=== PATIENT | male | born 1950 | race Caucasian/White ===

== ENCOUNTER 2016-10-19 12:27 | Emergency (ER) | payer OTHER ==
[~2016-10-19] VITALS: Ht 180.3 cm; Wt 100.0 kg
[~2016-10-19 12:27] MED LIST: CAL-500T PO; CEPH-460 PO; CHOL1TAB29 PO; CLAR10CA3 PO; DOXY100C PO; ENBR50IN2 SQ; LISI-519 PO; MEDR4TAB PO; METH0.4I3 SQ; NYST10007 TOPICAL; PANT40TA3 PO; POTA99TA PO; PROB1TAB PO; REST15CA PO; TRAM50TA PO; VITA100T2 PO; VITACAP7 PO; [UNRECOGNIZED DRUG - CODE] PO
[2016-10-19 12:29] VITALS: BP 127/94; PULSE 101; RESP 15; TEMP 98.2; O2SAT 97
--- NOTE | 2016-10-19 12:37 | PD ---
HPI . right 4th toe laceration Chief Complaint: Laceration/Skin Injury Time Seen by Provider: 12:37 Travel History International Travel<30 days: No Contact w/Intl Traveler<30days: No Traveled to known affect area: No History of Present Illness HPI 66-year-old male with past medical history of rheumatoid arthritis, neuropathy and osteoarthritis here with complaints of right fourth toe laceration. Patient was trying to remove his shoe last night and cut the right fourth toe. He actually had no recollection of the event, but his significant other noticed the bleeding. They immediately cleaned off the toe with Betadine and saline. She applied a clean dressing. Today he is here seeking repair of this toe. He does have an appointment with his new primary care provider on Friday. He denies any pain or discomfort in the area. He is up-to-date on his tetanus and received in 2013. He is requesting repair of this laceration without the use of lidocaine due to his significant neuropathy. He tells me he has had lacerations repair in the past without any anesthesia. PFSH Past Medical History Hx Anticoagulant Therapy: Yes Arthritis: Yes Asthma: No Autoimmune Disease: Yes (RA) Blood Disorders: No Anxiety: No Depression: No Heart Rhythm Problems: No Cancer: No Cardiovascular Problems: Yes High Cholesterol: Yes Chemotherapy: No Chest Pain: No Congestive Heart Failure: No COPD: No Diabetes: No Diminished Hearing: No Endocrine: No Gastrointestinal Disorders: Yes GERD: No Genitourinary: No Hiatal Hernia: No Hypertension: Yes Immune Disorder: No Implanted Vascular Access Dvce: Yes Kidney Stones: No Musculoskeletal: Yes (OA) Neurologic: No Psychiatric: No Reproductive: No Respiratory: Yes Radiation Therapy: No Renal Failure: No Sickle Cell Disease: No Sleep Apnea: Yes Thyroid Disease: No Ulcer: Yes (esopogeal varices) Past Surgical History Abdominal Surgery: No AICD: No Arteriovenous Shunt: No Body Medical Devices: LEFT HIP IMPLANT Cardiac Surgery: No Ear Surgery: No Endocrine Surgery: No Eye Surgery: No Genitourinary Surgery: No Gynecologic Surgery: No Insulin Pump: No Joint Replacement: Yes (right hip replacement) Oral Surgery: No Pacemaker: No Thoracic Surgery: No Other Surgery: Yes Social History Alcohol Use: Yes (6 BEERS DAILY) Tobacco Use: No Substance Use: No Allergies-Medications (Allergen,Severity, Reaction): Coded Allergies: No Known Allergies (Verified , 07/07/16) Reported Meds & Prescriptions Reported Meds & Active Scripts Active Nystop Topical (Nystatin Topical) 100,000 Unit/Gm Powd 1 Applic TOPICAL Q12HR Restoril (Temazepam) 15 Mg Cap 15 Mg PO HS PRN Vitamin B-1 (Thiamine HCl) 100 Mg Tab 100 Mg PO DAILY Reported Hydrochlorothiazide 12.5 Mg Cap 12.5 Mg PO DAILY Claritin (Loratadine) 10 Mg Cap 10 Mg PO DAILY Probiotic (Probiotic Product) 1 Tab Tab 1 Tab PO DAILY B Complex (B-Complex Vitamins) 1 Cap 1 Cap PO DAILY D3 2000 (Cholecalciferol) 2,000 Unit Tab 2,000 Units PO DAILY Enbrel PF Inj (Etanercept) 50 mg/ml Syr 50 Mg SQ Q7D GIVE ON FRIDAYS Otrexup Inj (Methotrexate Inj) 25 Mg/0.4 Ml Inj 25 Mg SQ WEEKLY GIVE ON FRIDAYS Tramadol (Tramadol HCl) 50 Mg Tab 100 Mg PO TID PRN Medrol (Methylprednisolone) 4 Mg Tab 6 Mg PO BID Pantoprazole (Pantoprazole Sodium) 40 Mg Tab 40 Mg PO DAILY Potassium 99 Mg Tab 99 Mg PO DAILY Lisinopril 5 Mg Tab 5 Mg PO DAILY Gentle Iron 28-60-0.008-0.4 mg (Iron-Vit C-N36-Jqwqw Acid) 28-60-0.008-0.4 mg Tab 1 Tab PO HS Freddie-Mag (Calcium-Magnesium) 500-250 Mg Tab 1 Tab PO DAILY Review of Systems General / Constitutional: No: Fever Eyes: No: Visual changes HENT: No: Headaches Cardiovascular: No: Chest Pain or Discomfort Respiratory: No: Shortness of Breath Gastrointestinal: No: Abdominal Pain Genitourinary: No: Dysuria Musculoskeletal: No: Pain Skin: Positive Other (right 4th toe laceration), No Rash Neurologic: No: Weakness Psychiatric: No: Depression Endocrine: No: Polydipsia Hematologic/Lymphatic: No: Easy Bruising Physical Exam Narrative GENERAL: AAO x 3, no acute distress, Well-nourished, well-developed patient. SKIN: Warm and dry. No visible rashes or bruising. HEAD: Normocephalic and atraumatic. EYES: No scleral icterus. No injection or drainage. ENT: No nasal drainage noted. Mucous membranes pink. Airway patent. NECK: Supple, trachea midline. No JVD. CARDIOVASCULAR: Regular rate and rhythm without murmurs, gallops, or rubs. RESPIRATORY: Breath sounds equal bilaterally. No accessory muscle use. No rhonchi or rales. GASTROINTESTINAL: no abn on visual inspection EXTREMITIES: No cyanosis or edema. severe neuropathy as patient cannot feel any pinprick. There is a small 1.5 cm laceration plantar aspect of the 4th toe. The wound is clean without evidence of fb. BACK: Nontender without obvious deformity. No CVA tenderness. PSYCH: AAO x 3, normal affect. Data Data Last Documented VS Vital Signs Date Time Temp Pulse Resp B/P Pulse Ox O2 Delivery O2 Flow Rate FiO2 10/19/16 12:29 98.2 101 15 127/94 97 MDM Medical Decision Making Medical Screen Exam Complete: Yes Emergency Medical Condition: Yes Medical Record Reviewed: Yes Differential Diagnosis toe laceration, toe abrasion, less likely toe fracture Narrative Course 66-year-old male with past medical history of rheumatoid arthritis, neuropathy and osteoarthritis here with complaints of right fourth toe laceration. Patient was trying to remove his shoe last night and cut the right fourth toe. He actually had no recollection of the event, but his significant other noticed the bleeding. They immediately cleaned off the toe with Betadine and saline. She applied a clean dressing. Today he is here seeking repair of this toe. He does have an appointment with his new primary care provider on Friday. He denies any pain or discomfort in the area. He is up-to-date on his tetanus and received in 2013. He is requesting repair of this laceration without the use of lidocaine due to his significant neuropathy. He tells me he has had lacerations repair in the past without any anesthesia. Patient seen and examined. He does have a laceration to the right fourth toe plantar aspect. Laceration was repaired without incident. Patient advised to follow-up with his primary care provider as scheduled on Friday. He was notified these sutures will need to be removed in 7-10 days. We discussed the signs of infection and he will notify us or his primary care provider if any of these arise. Patient verbalized understanding of instructions, questions were answered, and thanked me for their care. I advised them if their condition worsens, please return to the nearest emergency room for further care. Procedures Procedure Narrative LACERATION LOCATION: right 4th toe LENGTH: 1.5cm NUMBER OF STITCHES/MAYKEL: 5 REPAIR: The area of the laceration was prepped with Betadine and sterilely draped. Anesthesia was declined by the patient. The wound was copiously irrigated and explored without evidence of foreign body, tendon injury or neurovascular injury. The wound was closed using 4-0 Ethilon. This was a single layer repair. A sterile dressing was applied. The patient was advised to keep the dressing clean and dry. Patient tolerated the procedure well. Diagnosis Primary Impression: Toe laceration Qualified Code: S91.114A - Laceration of lesser toe of right foot without foreign body present or damage to nail, initial encounter Patient Instructions: Acute Wound Care (ED), General Instructions, Laceration ( ED) Additional Instructions: [place] for worsening signs of infection which include increased redness, increased warmth, purulent drainage, increased swelling or streaking. Please return to emergency department if your symptoms return or worsen. Follow up with your primary care provider. ' Keep area clean. These sutures will need to be removed in 7-10 days. Med/Other Pt SpecificInfo: No Change to Meds Disposition: 01 DISCHARGE HOME Condition: Stable Nhi Mcneil Oct 19, 2016 12:37
[2016-10-19] MEDS ORDERED: HYDR12.57 PO (12:47)
[2016-10-21] MEDS ORDERED: CHEL50TA (15:22)
[2016-10-21] MEDS ORDERED: PROB1CHW2 (15:22)
[2016-10-21] MEDS ORDERED: DOCU100C PO (15:22)
[2016-10-21] MEDS ORDERED: FOLI1CAP7 PO (15:22)
[2016-10-21] MEDS ORDERED: NYST10007 TOPICAL (15:44)
[2016-10-21] MEDS ORDERED: MEDR4TAB PO (15:47)
[2016-10-21] MEDS ORDERED: CLAR10CA3 PO (15:47)
[2016-10-22] MEDS ORDERED: CLAR10CA3 PO (12:51)
[2016-10-22] MEDS ORDERED: NYST10007 TOPICAL (12:51)
[2016-10-22] MEDS ORDERED: MEDR4TAB PO (12:51)
[2016-10-28] MEDS ORDERED: LISI-519 PO (11:51)
[2016-10-28] MEDS ORDERED: PROT40TA PO (11:53)
== END 2016-10-19 13:28 | disposition home or self-care (01) ==
LOC: NEPB 12:27
DX: S91.114A Laceration without foreign body of right lesser toe(s) without damage to nail, initial encounter (principal); G62.9 Polyneuropathy, unspecified; M19.90 Unspecified osteoarthritis, unspecified site; M06.9 Rheumatoid arthritis, unspecified; E78.00 Pure hypercholesterolemia, unspecified; I10 Essential (primary) hypertension; Z79.01 Long term (current) use of anticoagulants
CPT/HCPCS: 12001

== ENCOUNTER → 2016-10-22 | Outpatient (CLI) | payer OTHER ==
[~2016-10-22] MED LIST changes: +CHEL50TA; +DOCU100C PO; +FOLI1CAP7 PO; +HYDR12.57 PO; +PROB1CHW2; +PROT40TA PO
[2016-10-22 13:03] LABS: AUTOMATED NEUTROPHIL # 4.7 TH/MM3 (1.8-7.7); BASOPHIL # 0.1 TH/MM3 (0-0.2); BASOPHIL % 1.1 % (0.0-2.0); EOSINOPHIL # 0.1 TH/MM3 (0-0.4); EOSINOPHIL % 1.4 % (0.0-4.0); HEMATOCRIT 39.2 % (39.0-51.0); HEMO FLAGS DIFF FINAL; LYMPH % 35.2 % (9.0-44.0); LYMPHOCYTE # 2.9 TH/MM3 (1.0-4.8); MEAN CELL VOLUME 96.8 FL (80.0-100.0); MEAN CORPUSCULAR HEMOGLOBIN 32.9 PG (27.0-34.0); MONO % 5.9 % (0.0-8.0); NEUT % 56.4 % (16.0-70.0); PLATELET COUNT 255 TH/MM3 (150-450); RED BLOOD COUNT 4.04 MIL/MM3 (4.50-5.90); RED CELL DISTRIBUTION WIDTH 14.8 % (11.6-17.2); WHITE BLOOD COUNT 8.3 TH/MM3 (4.0-11.0)
[2016-10-22 13:27] LABS: ANION GAP 7 MEQ/L (5-15); AST (GOT) 16 U/L (15-37); BICARBONATE 30.1 MEQ/L (21.0-32.0); BLOOD UREA NITROGEN 15 MG/DL (7-18); CHLORIDE 103 MEQ/L (98-107); GLOMERULAR FILTRATION RATE 128 ML/MIN (>89); POTASSIUM 3.9 MEQ/L (3.5-5.1); SODIUM (NA) 140 MEQ/L (136-145)
[2016-10-22 13:39] LABS: ALKALINE PHOSPHATASE 51 U/L (45-117); ALT (GPT) 28 U/L (12-78); GLUCOSE,FASTING 70 MG/DL (74-99); HDL CHOLESTEROL 67.5 MG/DL (40.0-60.0); LDL CHOLESTEROL 108 MG/DL (0-99); TOTAL BILIRUBIN ADULT 0.4 MG/DL (0.2-1.0)
== END ==
LOC: CLAB 12:05
PROVIDERS: ATTEND Family Medicine
DX: M06.9 Rheumatoid arthritis, unspecified (principal); K22.10 Ulcer of esophagus without bleeding; S91.119A Laceration without foreign body of unspecified toe without damage to nail, initial encounter; X58.XXXA Exposure to other specified factors, initial encounter; G62.9 Polyneuropathy, unspecified; E66.9 Obesity, unspecified
CPT/HCPCS: 36415; 80053; 80061; 84443; 85025

== ENCOUNTER → 2017-05-05 | Day surgery (SDC) | payer MEDICARE ==
[~2017-05-05] MED LIST changes: -CEPH-460 PO; -DOXY100C PO; +PROPOFOL 1000 MG/100 ML BTL IV ONE
--- NOTE | 2017-05-05 12:37 | GIPROC ---
[facility] [address] [facility], [address] EGD PROCEDURE REPORT EXAM DATE: 05/05/2017 PATIENT NAME: Lewis Edmondson MR #: [id number] BIRTHDATE: 1950 ATTENDING: Lukas Meléndez MD ORDER #: [id number] STEWARDESSES TEACHER: John Wallace RN STATUS: outpatient INDICATIONS: The patient is a 67 yr old male here for an EGD due to follow up of Blake's esophagus PROCEDURE PERFORMED: EGD w/ biopsy MEDICATIONS: None and Per Anesthesia. TOPICAL ANESTHETIC: CONSENT: The patient understands the risks and benefits of the procedure and understands that these risks include, but are not limited to: sedation, allergic reaction, infection, perforation and/or bleeding. Alternative means of evaluation and treatment include, among others: physical exam, x-rays, and/or surgical intervention. The patient elects to proceed with this endoscopic procedure. medical equipment was checked for proper function. Hand hygiene and appropriate measures for infection prevention was taken. After the risks, benefits and alternatives of the procedure were thoroughly explained, Informed consent was verified, confirmed and timeout was successfully executed by the treatment team. The patient was anesthetized with topical anesthesia and the [id number]-[id number] ([id number]) and EC-3890Li ([id number]) endoscope was introduced through the mouth and advanced to the second portion of the duodenum. Retroflexed views revealed a hiatal hernia The gastroscope was then slowly withdrawn and removed. ESOPHAGUS: There was long segment Blake's esophagus found in the distal esophagus. The length of circumferential Blake's was 6cm ([place] C6) and the length of Maximal extent of Blake's was 8cm ([place] M8). There was no nodular mucosa noted in the Blake's segment. Multiple biopsies were performed using cold forceps. Sample sent for histology. STOMACH: There was mild gastritis in the gastric antrum. DUODENUM: The duodenal mucosa appeared normal in the bulb and second portion of the duodenum. ADVERSE EVENTS: There were no complications. IMPRESSIONS: 1. There was long segment Blake's esophagus found in the distal esophagus; multiple biopsies were performed 2. There was mild gastritis in the gastric antrum 3. Normal duodenal mucosa in the bulb and second portion of the duodenum 4. Retroflexed views revealed a hiatal hernia RECOMMENDATIONS: 1. Await biopsy results. Biopsy results will not be ready for 7-10 days. If you don't hear from us in two weeks, call our office for biopsy results. 2. Anti-reflux regimen 3. Continue PPI 4. Surgery PATIENT CONDITION: stable DISPOSITION: Home REPEAT EXAM: Return 3 months EGD pending biopsy results with Barrx Lukas Meléndez MD eSigned: Lukas Meléndez MD 05/05/2017 12:37 PM cc: Sabina Hummel PATIENT NAME: Lewis Edmondson MR#: [id number]
--- NOTE | 2017-05-05 12:53 | GIPROC ---
[facility] [address] [facility], [address] COLONOSCOPY PROCEDURE REPORT EXAM DATE: 05/05/2017 PATIENT NAME: Lewis Edmondson MR #: [id number] BIRTHDATE: 1950 ENDOSCOPIST: Lukas Meléndez MD ORDER #: [id number] APPEALS REVIEWER VETERAN: John Wallace RN STATUS: outpatient INDICATIONS: The patient is a 67 yr old male here for a colonoscopy due to average risk patient for colon cancer PROCEDURE PERFORMED: Colonoscopy, diagnostic MEDICATIONS: None and Per Anesthesia. PREP QUALITY: The Fitzhugh Bowel Prep Score was Right colon 2, Mid colon 2, and Left colon 2. Total = 6. ESTIMATED BLOOD LOSS: None CONSENT: The patient understands the risks and benefits of the procedure and understands that these risks include, but are not limited to: sedation, allergic reaction, infection, perforation and/or bleeding. Alternative means of evaluation and treatment include, among others: physical exam, x-rays, and/or surgical intervention. The patient elects to proceed with this endoscopic procedure. medical equipment was checked for proper function. Hand hygiene and appropriate measures for infection prevention was taken. After the risks, benefits and alternatives of the procedure were thoroughly explained, Informed consent was verified, confirmed and timeout was successfully executed by the treatment team. A digital exam revealed external hemorrhoids The EC-3890Li ([id number]) endoscope was introduced through the anus and advanced to the cecum, which was identified by both the appendix and ileocecal valve. The instrument was then slowly withdrawn as the colon was fully examined. COLON FINDINGS: The colonic mucosa appeared normal throughout the entire examined colon. Retroflexed views revealed internal hemorrhoids and Retroflexed views revealed medium internal hemorrhoids The scope was then completely withdrawn from the patient and the procedure terminated. PROCEDURE WITHDRAWAL TIME:6minutes ADVERSE EVENTS: There were no complications. IMPRESSIONS: 1. The colonic mucosa appeared normal throughout the entire examined colon 2. Retroflexed views revealed internal hemorrhoids 3. Retroflexed views revealed medium internal hemorrhoids 4. Revealed external hemorrhoids RECOMMENDATIONS: 1. Continue surveillance 2. Yearly hemoccult RECALL: Return 5 years Colonoscopy Lukas Meléndez MD eSigned: Lukas Meléndez MD 05/05/2017 12:52 PM cc: Sabina Hummel PATIENT NAME: Lewis Edmondson MR#: [id number]
== END | disposition home or self-care (01) ==
LOC: ESDC 10:42
PROVIDERS: ATTEND Internal Medicine Gastroenterology
DX: Z12.11 Encounter for screening for malignant neoplasm of colon (principal); K64.4 Residual hemorrhoidal skin tags; K64.8 Other hemorrhoids; K22.70 Barrett's esophagus without dysplasia; K44.9 Diaphragmatic hernia without obstruction or gangrene; K29.70 Gastritis, unspecified, without bleeding
CPT/HCPCS: 00740; 00810; 43239; 45378; 88305; J3010

== ENCOUNTER 2018-05-12 06:22 | Inpatient (IN) ==
[2018-05-12] MEDS ORDERED: Metoprolol Tartrate 25 MG Tablet PO ONE (07:15)
[2018-05-12] MEDS ORDERED: Chlorhexidine Gluconate 2% 1 Pack (2 Cloths) TOPICAL ONE (07:15)
[2018-05-12] MEDS ORDERED: Sodium Chlor 0.9% Inj 500 ML IV.CONT ONE (07:15)
[2018-05-12] MEDS ORDERED: Sod Chloride 0.9% Inj 1,000 ML IV.SIG SCH (07:15)
[2018-05-12] MEDS ORDERED: Vancomycin Inj 1,000 MG in Sodium Chlor 0.9% Inj 250 ML IV.SIG SCH (08:00)
[2018-05-12] MEDS ORDERED: Gelatin Size 100 Topical Foam ONE (08:08)
[2018-05-12] MEDS ORDERED: Thrombin Topical Soln 5,000 UNIT Vial TOPICAL ONE (08:08)
[2018-05-12] MEDS ORDERED: ceFAZolin 2 GM Premix Inj 2 GM/50 ML PIGGYBACK IV.SIG ONE (08:08)
[2018-05-12] MEDS ORDERED: Phenylephrine/NS 1000 MCG/10ML Syringe IV.PUSH ONE (08:37)
[2018-05-12] MEDS ORDERED: Lidocaine PF 1% Inj 5 ML Syringe OTHER ONE (08:37)
[2018-05-12] MEDS ORDERED: Electrolytes R/Dextrose 5% Inj 1,000 ML IV.CONT ONE (08:37)
[2018-05-12] MEDS ORDERED: methylPREDNISolone acetate 40 MG/ML VIAL ONE (08:45)
[2018-05-12] MEDS ORDERED: Bisacodyl 10 MG Supp RECTAL PRN (09:03)
[2018-05-12] MEDS ORDERED: Temazepam 15 MG Capsule PO PRN (09:06)
[2018-05-12] MEDS ORDERED: HYDROmorphone PF Inj 2 MG/ML Vial ONE (09:15)
[2018-05-12] MEDS ORDERED: Propofol Inj 500 MG/50 ML Vial ONE (09:15)
[2018-05-12] MEDS ORDERED: *Meperidine Inj 25 MG/ML Vial PERIprocedural Use ONLY ONE (13:48)
--- NOTE | 2018-05-12 14:00 | P.OP ---
Preoperative Diagnosis: Spondylotic cervical myelopathy Postoperative Diagnosis: Spondylotic cervical myelopathy Date of procedure: 05/12/18 Procedure: C6 corpectomy, C5-C7 interbody arthrodesis using Titanium cage filled with autologous bone graft, instrumental fixation using Simplicity plate and screws Anesthesia: JOSE Surgeon: Carlos Anderson MD Business Resiliency Manager: Kerri Robles Pathology: none sent Operation and Findings: INDICATIONS FOR THE PROCEDURE Mr Edmondson is a 68 year-old male who presented with intractable neck pain and clinical evidence of severe cervical myelopathy. He failed maximum nonsurgical management A proper surgical decompression could not be achieved by performing an anterior cervical discectomy and a corpectomy and arthrodhesis were indicated. The ilpt-pk-[id number] details of the procedure, indications, alternatives, risks and potential complications were fully discussed with the patient. The patient fully understood. All The questions were answered. No guarantees were given. The patient voiced requesting the procedure and provided informed consents. The patient was offered the alternative of delaying the procedure and continuing with nonsurgical management. DETAILS OF THE SURGICAL PROCEDURE After the induction of general anesthesia, endotracheal intubation was performed. Electrodes were placed for electrophysiological monitoring of the somatosensorial evoked potentials, EMG, laryngeal nerve EMG, and motor evoked potentials prior to the intubation and kept thorough the procedure. A Lunsford catheter, bilateral MARGIE hose, and sequential compression devices were placed and kept throughout the procedure. The patient was positioned supine on a Eder table with the head over a gel doughnut. All pressure points were carefully padded with eggcrate mattress. The eyes were tapped shut after ointment was applied by the anesthesiologist to prevent corneal abrasion. A Katy hugger was placed over the exposed lower body to maintain control of the core body temperature. The electrophysiological team placed the needles and electrodes in their proper location and baseline SSEP's and motor evoked potentials were registered. The anterior cervical region was prepped and draped in the usual sterile fashion. A localizing x-ray was performed with a C-arm. Surgical exposure A skin incision was made along the inferior cervical crease along the anterior border of the sternocleidomastoid with a #10 blade. The dissection was carried out through the platysma exposing the sternocleidomastoid. The cervical spine was approached following the fascial layers of the neck just medial to the anterior border of the sternocleidomastoid and carotid sheath by a combination of sharp and dull dissection. The omohyoid muscle was identified and carefully dissected laterally and the deep cervical fascia was carefully opened. The longus colli muscles were retracted to each side of the midline. A cervical marker was placed at the disk space C5-6 and a cross-table lateral x-ray performed with a C-arm. An anterior osteophytic spur was carefully removed, and a self-retaining retractor was placed underneath the longus colli muscle. Corpectomy At this point in the procedure the operating microscope was draped in the usual sterile fashion and brought to the field. The rest of the surgical procedure was performed using microdissection technique with the exception of the closure. A micro discectomy was initially performed at C5-6 and C6-7, the superior and inferior disks adjacent to the corpectomy. The corpectomy was then drilled with the TPS drill and the bones obtained were saved for use during the fusion. The mass affect on the anterior surface of the dural sac was carefully relieved by drilling with a TPS drill under high magnification. A complete resection of the vertebral body was achieved. The posterior longitudinal ligament was elevated with an angled curet and removed with a thin footplate 2 mm Kerrison. A bilateral foraminotomy was performed with a Kerrison. The epidural space was assessed with a nerve hook. Interbody arthrodhesis The incision was then irrigated with a large amount of antibiotic solution and the endplates were evenly decorticated with a TPS drill in preparation for the interbody arthrodesis. The interbody arthrodesis was then preformed by carefully impacting a Titanium Mesh cage filled with autologous bone graft to the corpectomy space, and excellent position of the cage was achieved which was confirmed anatomically by fealing the epidural space with a nerve root and radiologically with the isocentric C-arm. Instrumental fixation Then, a Simplicity plate was brought to the field and secured with 16 mm screws. A reasonable purchase was achieved with all screws and the position of the cage, plate and screws, and alignment of the spine was assessed radiologically with the ISOCENTRIC C-arm. Closure The incision was irrigated with antibiotic solution. Hemostasis was achieved with a bipolar. The screws were locked to prevent backing out. A Eder- [place] drain was left in the prevertebral space and externalized through a separate stab incision. The incision was then closed in layers. 3-0 Vicryl with interrupted sutures was used to close the platysma and subcutaneous tissue. The skin was closed with 4-0 running subcuticular Vicryl and Dermabond was applied to the skin. The drain was secured with a 3-0 nylon. At the end of the procedure the sponge, needle and instrument counts were all correct. The estimated blood loss was 80-100 cc. No blood transfusion was given. No intraoperative complications occurred. The patient received prophylactic antibiotics. The patient was then extubated and transferred to the recovery room in stable condition.
[2018-05-12] MEDS ORDERED: *morphine SULFATE 4 MG/ML PERIprocedure ONLY ONE ×2 (14:03→14:34)
[2018-05-12] MEDS ORDERED: fentaNYL Citrate Inj 100 MCG/2 ML Ampul ONE ×2 (14:10)
--- NOTE | 2018-05-12 14:26 | XR ---
EXAM DATE: 05/12/2018 12:00 AM EDT AGE/SEX: 68 years / Male INDICATIONS: Corpectomy, C6 CLINICAL DATA: This is the patient's initial encounter. Patient reports that signs and symptoms have been present for 1 day and indicates a pain score of Nonresponsive. MEDICAL/SURGICAL HISTORY: None. None. COMPARISON: No prior exams available for comparison. FINDINGS: AP and lateral views of the cervical spine were obtained and demonstrate the patient is status post e ctomy at the C6 level with metal cage in place. There is an anterior screw-plate fixation device atte nding from the C5-C7 level. There is a endotracheal tube in place. There are multiple overlying elect rocardiogram leads there are posterior wires. CONCLUSION: Status post corpectomy at the C6 level with anterior fusion. Electronically signed by: Michael Dallas MD 05/12/2018 2:24 PM EDT
[2018-05-12] MEDS: ceFAZolin 2 GM Premix Inj 2 GM/50 ML PIGGYBACK IV.SIG SCH (16:00)
[2018-05-12 18:21] VITALS: RESP 18
[2018-05-12] MEDS: Ciprofloxacin 250 MG Tablet PO SCH ×2 (19:25→21:58)
[2018-05-12] MEDS: Gabapentin 300 MG Capsule PO SCH (20:44)
[2018-05-12] MEDS: Senna/Docusate Sodium 8.6/50 MG Tablet PO SCH (20:44)
[2018-05-13] MEDS: ceFAZolin 2 GM Premix Inj 2 GM/50 ML PIGGYBACK IV.SIG SCH ×2 (00:58→09:00)
[2018-05-13] MEDS ORDERED: ZINC 50 MG PO SCH (09:00)
[2018-05-13] MEDS ORDERED: METHOTREXATE 50 MG/2 ML SQ SCH (09:00)
[2018-05-13] MEDS ORDERED: POTASSIUM PO SCH (09:00)
--- NOTE | 2018-05-13 11:11 | P.DS ---
Date of admission: 05/12/18 06:22 Primary care physician: PROVIDER NON STAFF Brief History from admission: Mr Edmondson is a 68 year-old male who presented with intractable neck pain and clinical evidence of severe cervical myelopathy. He failed maximum nonsurgical management A proper surgical decompression could not be achieved by performing an anterior cervical discectomy and a corpectomy and arthrodesis were indicated. DS: Summary Hospital Course: Mr. 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 His surgery went well without complications. CALEB drain removed. Case management consulted for discharged to SNF. He has been cleared for discharge once arrangements made. - Time Spent with Patient Total time spent providing and/or coordinating discharge services: Less than 30 minutes - Quality: VTE Deep Vein Thrombosis/Pulmonary Embolism Present on Admission: No Exam Vital signs: Vital Signs 05/12/18 13:29 05/12/18 13:32 05/12/18 13:45 Temperature Pulse Rate 79 78 Respiratory Rate 14 9 L 9 L Blood Pressure 117/58 L 115/58 L Pulse Oximetry 95 93 L 96 05/12/18 14:00 05/12/18 14:04 05/12/18 14:15 Temperature Pulse Rate 77 76 Respiratory Rate 12 12 12 Blood Pressure 116/58 L 112/56 L Pulse Oximetry 95 95 05/12/18 14:30 05/12/18 14:37 05/12/18 14:45 Temperature Pulse Rate 76 73 Respiratory Rate 12 12 12 Blood Pressure 107/57 L 109/57 L Pulse Oximetry 96 96 05/12/18 15:00 05/12/18 16:00 05/12/18 19:00 Temperature 97.6 F 97.7 F 98.6 F Pulse Rate 74 70 74 Respiratory Rate 7 L 18 18 Blood Pressure 107/58 L 111/56 L 129/62 Pulse Oximetry 96 93 L 95 05/12/18 23:39 05/13/18 03:44 05/13/18 08:00 Temperature 98.2 F 98.2 F 98.1 F Pulse Rate 86 78 72 Respiratory Rate 18 18 18 Blood Pressure 146/69 H 133/62 131/61 Pulse Oximetry 95 96 94 L Intake & Output 05/12/18 05/13/18 05/13/18 18:59 06:59 18:59 Intake Total 2250 / 2250 1480 / 1480 Output Total 425 / 425 1805 / 1805 Balance 1825 / 1825 -325 / -325 Weight 118 kg 120.1 kg Intake: IV 50 / 50 1000 / 1000 NS + KCl 20 mEq Inj 1,000 ML @ 950 / 950 100 mls/hr IV.CONT .Q10H [facility] Rx #:[id number] Ancef 2 GM Premix Inj 2 gm In 50 / 50 50 / 50 50 ml @ 100 mls/hr IV.SIG Q8H [facility] Rx#:[id number] Oral 480 / 480 Anesthesia Amount 2200 / 2200 Output: Urine Amount (Catheter) 400 / 400 1800 / 1800 Indwelling Urethral Catheter 400 / 400 1800 / 1800 Wound Drainage / 25 5 / 5 Anterior Neck CALEB Drain 5 / 5 Other: Date of Last Bowel Movement 05/08/18 # Bowel Movements 0 Weight On Admission 111 kg Results Procedures completed during hospitalization: C6 corpectomy, C5-C7 interbody arthrodesis using Titanium cage filled with autologous bone graft, instrumental fixation using Simplicity plate and screws - Impressions ITS Impressions Cervical Spine X-Ray 05/12/18 00:00 CONCLUSION: Status post corpectomy at the C6 level with anterior fusion. Discharge Plan - Discharge Disposition Patient Disposition: Discharge to SNF - Discharge Condition Condition: Stable - Discharge Order Discharge Orders: Discharge Order (Routine); Ordered 05/13/18 Ordered By: Elle Brown - Physicians Team Primary Care Provider: NON STAFF,PROVIDER Attending Provider: Carlos Anderson - Rxs /Orders / Referrals /Forms Prescriptions: Continue calcium carbonate-vit D3-min [Calcium 600 + Minerals] 600 mg calcium- 400 unit Tablet 1 tab PO DAILY cetirizine [Zyrtec] 10 mg Tablet 10 mg PO DAILY cholecalciferol (vitamin D3) [Vitamin D3] 2,000 unit Tablet 2,000 unit PO EVERY OTHER DAY ciprofloxacin HCl [Cipro] 250 mg Tablet 250 mg PO Q12H cyanocobalamin (vitamin B-12) 500 mcg Tablet 500 mcg PO DAILY cyclobenzaprine 10 mg Tablet 5 mg PO HS docusate sodium [Colace] 100 mg Capsule 100 mg PO DAILY ergocalciferol (vitamin D2) [Vitamin D2] 50,000 unit Capsule 50,000 unit PO QWEEK ferrous sulfate 27 mg iron Tablet 25 mg PO DAILY folic acid 0.8 mg Capsule 0.8 mg PO DAILY gabapentin 600 mg Tablet 600 mg PO HS hydrochlorothiazide 12.5 mg Tablet 12.5 mg PO DAILY Lactobacillus acidoph-pectin [Acidophilus-Pectin] Tablet,Chewable 2 tab PO DAILY lisinopril 5 mg Tablet 5 mg PO DAILY methotrexate (PF) 25 mg/0.5 mL Auto-Injector 25 mg SUBCUT QWEEK methylprednisolone 4 mg Tablet 2 mg PO 3XW pantoprazole 40 mg Tablet,Delayed Release (Dr/Ec) 40 mg PO DAILY potassium 99 mg Tablet 1 tab PO DAILY temazepam 15 mg Capsule 1 cap PO HS PRN (Reason: Insomnia) tramadol 50 mg Tablet 100 mg PO DAILY vitamin B comp with C no.4 [Super B Complex + C] 150 mg Tablet 1 tab PO DAILY zinc [Chelated Zinc] 50 mg Tablet 50 mg PO DAILY Referrals: NON STAFF,PROVIDER [Primary Care Provider] - See Instructions - Discharge Instructions Patient Printed Instructions: Anterior Cervical Discectomy (DC)
[2018-05-13] MEDS: Lisinopril 5 MG Tablet PO SCH (11:20)
[2018-05-13] MEDS: Docusate Sodium 100 MG Capsule PO SCH (11:20)
[2018-05-13] MEDS: Vitamin B Complex/Vitamin C Tablet PO SCH (11:20)
[2018-05-13] MEDS: Senna/Docusate Sodium 8.6/50 MG Tablet PO SCH ×2 (11:20→20:46)
[2018-05-13] MEDS: Calcium/Vitamin D 250/125 MG Tablet PO SCH (11:21)
[2018-05-13] MEDS: Ciprofloxacin 250 MG Tablet PO SCH ×2 (11:21→20:45)
[2018-05-13] MEDS: Folic Acid 1 MG Tablet PO SCH (11:21)
[2018-05-13] MEDS: Lactobacillus Acidophilus/L. Spores Tablet PO SCH (11:21)
[2018-05-13] MEDS: Ferrous Sulfate 325 MG Tablet PO SCH (15:05)
[2018-05-13] MEDS: Gabapentin 300 MG Capsule PO SCH (20:45)
[2018-05-14 07:50] VITALS: O2SAT 97
[2018-05-14] MEDS: Lisinopril 5 MG Tablet PO SCH (08:13)
[2018-05-14] MEDS: Folic Acid 1 MG Tablet PO SCH (08:13)
[2018-05-14] MEDS: Lactobacillus Acidophilus/L. Spores Tablet PO SCH (08:13)
[2018-05-14] MEDS: Docusate Sodium 100 MG Capsule PO SCH (08:13)
[2018-05-14] MEDS: Ciprofloxacin 250 MG Tablet PO SCH (08:14)
[2018-05-14] MEDS: Vitamin B Complex/Vitamin C Tablet PO SCH (08:14)
[2018-05-14] MEDS: Senna/Docusate Sodium 8.6/50 MG Tablet PO SCH (08:14)
[2018-05-14] MEDS: Calcium/Vitamin D 250/125 MG Tablet PO SCH (08:14)
--- NOTE | 2018-05-14 09:11 | P.PNNS ---
Subjective Interval history: pt was also seen yesterday, cleared to dc to SNF, dc orders in place. trying to see if he can be accepted to [facility]. continues to do well today, no new neuro complaints. Physical Exam Vital signs: Vital Signs 05/13/18 12:00 05/13/18 16:00 05/13/18 20:00 Temperature 97.3 F L 97.7 F 97.6 F Pulse Rate 70 64 75 Respiratory Rate 18 Blood Pressure 141/69 H 141/67 H 153/67 H Pulse Oximetry 98 95 96 05/14/18 00:00 05/14/18 04:47 05/14/18 07:48 Temperature 97.3 F L 97.3 F L 97.2 F L Pulse Rate 71 58 L 62 Respiratory Rate 18 Blood Pressure 144/69 H 154/71 H 168/78 H Pulse Oximetry 96 96 97 Intake & Output 05/13/18 05/14/18 05/14/18 18:59 06:59 18:59 Intake Total 1000 / 1000 Output Total 1605 / 1605 Balance -605 / -605 Weight 120 kg Intake: IV 1000 / 1000 NS + KCl 20 mEq Inj 1,000 ML @ 1000 / 1000 100 mls/hr IV.CONT .Q10H [facility] Rx #:[id number] Output: Urine Amount (Catheter) 1600 / 1600 Indwelling Urethral Catheter 1600 / 1600 Wound Drainage 5 / 5 Anterior Neck CALEB Drain 5 / 5 Other: # Voids 5 Date of Last Bowel Movement 05/08/18 05/08/18 Narrative: Awake, alert Chicot collar in place wound with dressing, clean, dry, and intact. 5/5 in all four extremities ambulatory with rolling walker - Urinary Catheter Management Indwelling Urethral Catheter Cath placed during this visit: yes Reason for continuing: Hourly intake/output Insertion date: 05/12/18 Insertion time: 09:00 Assessment and Plan - Plan dc planning to SNF vs [facility] clear to dc, orders in
[2018-05-14] MEDS: Ferrous Sulfate 325 MG Tablet PO SCH (12:01)
--- NOTE | 2018-05-14 14:55 | P.PNWCN ---
Wound Care Nurse Consult Description: Wound consult ordered by for wound management Communicated with: Kerri RODRIGUEZ, Eren FALCON Recommendation: 1. Ensure patients heel are floated while in bed avoiding contact with mattress surface. 2. Cleanse Right calcaneus with saline only( wound cleanser deactivates Santyl by 80%) 3. Apply Santyl 2mm thick to wound base/necrotic tissue cover with saline moistened gauze,Secure with border gauze. 4. Sign and date all dressings, Change dressing daily or as needed for dislodgement. 5. Leave Versatel silicone contact layer in place x7 days to right wrist skin tear change secondary dressing as needed for dislodgement. 6. Patient may provide self care to left second digit. 7. follow up with engraver steel plate upon discharge. Additional information: Patient was seen today by bond writer and Kerri RODRIGUEZ for wound management.Patient alert and oriented resting in bed in no acute distress.Spouse present at bedside.Dressing removed from right foot. Calcaneus visualized patient noted to have a unstageable pressure injury to calcaneus measuring 2.3cm x 3.0cm x slough.Wound edges are well defined tonia.Wound base is 100% yellow / black soft adhered slough.mild erythema noted to periwound.Wound cleansed with normals maite Santyl 2mm thick applied to wound base and covered with saline moistened 2x2 gauze secured with border gauze.Dressing signed and dated.Left second digit has debrided callus in which wound base is moist pink non granular tissue with wound margins tonia indicating wound progression.Patient has current home oint to apply to affected digit. Patient noted to have skin tear to right wrist in which versatel silicone contact was applied with secondary dressing.Patient tolerated wound care well.Patient to be transferred to [facility] in which Eren FALCON will order Santyl. Wound/Pressure Injury - Patient Status Premedicated for Pain Prior to Dressing Change: No - Wound Right Heel Wound Staging: Unstageable Wound Assessment: Ongoing Wound Type: Pressure Injury Is This a Chronic Wound: No Requested from Provider a Wound Care Consult: No (Yu RODRIGUEZ,[facility] seen 05/14) Length (cm): 2.3 Width (cm): 3.0 Wound Bed Appearance: Necrotic, Yellow Surrounding Tissue Appearance: Blanched/Dull Surrounding Tissue Temperature: Cool Dressing Status: Changed Cleansing Solution: Saline Topical: Enzymatic Debridement Ointment Wound Packing Type: Gauze Pads Primary Dressing: Adhesive Dressing Wound Dressing Change Date: 05/14/18
[2018-05-14 15:41] VITALS: BP 137/64; PULSE 59; TEMP 97.2
== END 2018-05-14 16:32 ==
LOC: HSDI 06:22 → N06 15:18
PROVIDERS: ADMIT Neurological Surgery; ATTEND Neurological Surgery